=== PATIENT | female | born 1990 | race Caucasian/White ===

== ENCOUNTER 2017-04-07 12:56 | Emergency (ER) | payer OTHER ==
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
[2017-04-07 13:40] VITALS: TEMP 98.1
[2017-04-07 14:07] VITALS: BP 102/69; O2SAT 97
== END 2017-04-07 13:55 | disposition home or self-care (01) ==
LOC: ER 12:56
DX: O98.513 Other viral diseases complicating pregnancy, third trimester (principal); O24.419 Gestational diabetes mellitus in pregnancy, unspecified control; O99.513 Diseases of the respiratory system complicating pregnancy, third trimester; J45.909 Unspecified asthma, uncomplicated; O10.913 Unspecified pre-existing hypertension complicating pregnancy, third trimester; I10 Essential (primary) hypertension; O99.333 Smoking (tobacco) complicating pregnancy, third trimester; F17.210 Nicotine dependence, cigarettes, uncomplicated; Z87.440 Personal history of urinary (tract) infections; O99.343 Other mental disorders complicating pregnancy, third trimester; F32.9 Major depressive disorder, single episode, unspecified; Z3A.35 35 weeks gestation of pregnancy

== ENCOUNTER 2017-08-24 18:23 | Emergency (ER) | payer OTHER ==
[2017-08-24] MEDS ORDERED: SODIUM CHLORIDE 0.9% 1000ML 1,000 ML IVS ONE (18:39)
[2017-08-24] MEDS ORDERED: PROMETHAZINE HCL INJ 25 MG in SODIUM CHLORIDE 0.9% 50ML 50 ML IVPB ONE (18:39)
[2017-08-24] MEDS ORDERED: SUCRALFATE 1 GM/10 ML 1 GM UD PO ONE (18:39)
[2017-08-24 18:46] VITALS: TEMP 97.8
--- NOTE | 2017-08-24 19:02 | RAD ---
EXAM DESCRIPTION: Abdomen Series CLINICAL HISTORY: n/v COMPARISON: None FINDINGS: Supine and upright images of the abdomen and chest were submitted. The lungs are clear and cardiac silhouette normal. There is no free air in the abdomen. There is no evidence of bowel obstruction. IMPRESSION: No acute abnormalities. Electronically signed by: Ramin Kuo 08/24/2017 7:01 PM LAUNDRY PRICING CLERK
[2017-08-24] MEDS ORDERED: PROMETHAZINE HCL INJ 25 MG/ML VIAL ONE (19:18)
[2017-08-24] MEDS ORDERED: SODIUM CHLORIDE 0.9% 100ML 0 ML IVPB ONE (19:29)
[2017-08-24] MEDS ORDERED: SODIUM CHLORIDE 0.9% 50ML 50 ML ONE (19:30)
[2017-08-24] MEDS ORDERED: POTASSIUM CHLORIDE ELIXIR 20 MEQ/15 ML UD PO ONE (19:35)
[2017-08-24] MEDS ORDERED: KETOROLAC TROMETHAMINE INJ 30 MG/ML VIAL IV ONE (19:42)
[2017-08-24 19:59] VITALS: BP 109/73; O2SAT 98
[2017-08-24] MEDS ORDERED: ONDANSETRON ODT 8 MG TAB SL ONE (20:35)
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
== END 2017-08-24 20:53 | disposition home or self-care (01) ==
LOC: ER 18:23
DX: B34.9 Viral infection, unspecified (principal); Z87.891 Personal history of nicotine dependence; I10 Essential (primary) hypertension; R01.1 Cardiac murmur, unspecified
CPT/HCPCS: 36415; 74020; 80053; 81001; 81025; 82150; 83690; 83735; 85025; 87502; A4216; J1885; J2550; J7030

== ENCOUNTER 2017-09-02 06:53 | Emergency (ER) | payer OTHER ==
[2017-09-02 07:08] VITALS: BP 124/85; TEMP 98; O2SAT 97
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
== END 2017-09-02 07:45 | disposition home or self-care (01) ==
LOC: ER 06:53
DX: J02.9 Acute pharyngitis, unspecified (principal); F17.200 Nicotine dependence, unspecified, uncomplicated; R01.1 Cardiac murmur, unspecified

== ENCOUNTER → 2017-12-16 | Outpatient (CLI) | payer SELFPAY ==
--- NOTE | 2017-12-16 15:57 | RAD ---
EXAM DESCRIPTION: KUB CLINICAL HISTORY: DORSALGIA COMPARISON: None Available. TECHNIQUE: KUB FINDINGS: There is an unremarkable bowel gas pattern. Slight leftward curvature of the L-spine. Bones are otherwise unremarkable. Fecal burden is within normal limits. There is no mass or calculus observed. IMPRESSION: No diagnostic abnormality. Electronically signed by: Michael Garcia MD 12/16/2017 3:56 PM TRACK LAYING EQUIPMENT OPERATOR
== END ==
LOC: LAB.O 08:09
PROVIDERS: ATTEND Obstetrics & Gynecology
DX: M54.9 Dorsalgia, unspecified (principal)

== ENCOUNTER 2018-01-16 16:21 | Emergency (ER) | payer OTHER ==
[2018-01-16 17:04] VITALS: BP 118/70; TEMP 98.6; O2SAT 97
--- NOTE | 2018-01-16 17:13 | ED.PDOC ---
History of Present Illness - General Chief Complaint: General Stated Complaint: Fever, Aches, Upper Respitatory Congestion Time Seen by Provider: 01/16/18 17:11 Source: patient, RN notes reviewed, Vital Signs reviewed Additional Information: 27 YEAR OLD WHITE FEMALE HERE WITH COMPLAINTS OF COUGH CONGESTION REDDISH MUCOID SPUTUM FOR THE PAST 2 DAYS DENIES FEVER CHILLS SHE IS A SMOKER HAS NO HISTORY OF ALLERGIES OR ASTHMA - History of Present Illness Timing/Duration: getting worse Severity: moderate Improving Factors: nothing Worsening Factors: nothing Associated Symptoms: denies symptoms Allergies/Adverse Reactions: Allergies Aspartame [From Maalox] Allergy (Verified 01/16/18 16:51) Calcium Carbonate [From Maalox] Allergy (Verified 01/16/18 16:51) Unknown antibiotic Allergy (Uncoded 01/16/18 16:51) Home Medications: Ambulatory Orders Azithromycin [Zithromax Z-Mandeep] 1 ea PO DAILY #1 pack 01/16/18 Review of Systems - Review of Systems Constitutional: States: no symptoms reported EENTM: States: no symptoms reported Respiratory: States: see HPI Cardiology: States: no symptoms reported Gastrointestinal/Abdominal: States: no symptoms reported Genitourinary: States: no symptoms reported Musculoskeletal: States: no symptoms reported Skin: States: no symptoms reported Neurological: States: no symptoms reported Endocrine: States: no symptoms reported Hematologic/Lymphatic: States: no symptoms reported Past Medical History (General) - Patient Medical History Hx Seizures: No Hx Stroke: No Hx Asthma: Yes Hx of COPD: No Hx Cardiac Disorders: Yes - heart murmur Hx Congestive Heart Failure: No Hx Pacemaker: No Hx Hypertension: Yes Hx Diabetes: No Hx Gastroesophageal Reflux: Yes Hx Renal Disease: Yes - uti Hx Cancer: No Hx Hepatitis C: No Hx MRSA: No Surgical History: Hysterectomy - Vaccination History Hx Tetanus, Diphtheria Vaccination: Yes Hx Influenza Vaccination: No Hx Pneumococcal Vaccination: No - Social History Hx Tobacco Use: No Hx Chewing Tobacco Use: No Hx Alcohol Use: Yes - Rarely Hx Substance Use: No Hx Substance Use Treatment: No Hx Depression: No Feels Threatened In Home Enviroment: No Feels Threatened In a Relationship: No Hx Physical Abuse: No Hx Emotional Abuse: No Hx Suspected Abuse: No - Female History Patient is a Female of Child Bearing Age (10 -59 yrs old): No Hx Last Menstrual Period: 05/09/14 Patient : No Expected Date of Delivery:: 02/09/15 Family Medical History - Family History Father Age (years): 50 Living Status: Still Living Hx Family Asthma: Yes Hx Family Congestive Heart Failure: No Hx Family Hypertension: Yes - gf Hx Family Stroke: No Hx Cardiac Disease: No Hx Family Diabetes: Yes Hx Family Cancer: No Sister Living Status: Age at (years of age): 8da Hx Family;Other: sister at 8 days of age "all organs on 1 side of body crushing heart" Mother Family History: Unknown Age (years): 50 Living Status: Still Living Hx Family Asthma: Yes Age of Onset (years of age): lif Hx Family Congestive Heart Failure: Yes Hx Family Hypertension: Yes Hx Family Stroke: Yes Hx Cardiac Disease: Yes - daughter Hx Family Diabetes: Yes Age of Onset (years of age): 40 Hx Family Cancer: Yes - breast, prostate, uterine Hx Family;Other: alziemers, parkinsons, Physical Exam - Physical Exam General Appearance: Alert, Comfortable Eye Exam: bilateral normal Ears, Nose, Throat: hearing grossly normal, normal ENT inspection, pharyngeal erythema Neck: non-tender, full range of motion, supple Respiratory: chest non-tender, lungs clear, normal breath sounds, no respiratory distress Cardiovascular/Chest: normal peripheral pulses, regular rate, rhythm, no edema, no gallop, no JVD Gastrointestinal/Abdominal: normal bowel sounds, non tender, soft, no organomegaly Extremity: normal range of motion, non-tender, normal inspection Neurologic: behavioral instructor II-XII nml as tested, no motor/sensory deficits, alert, normal mood/affect, oriented x 3 Departure - Departure Clinical Impression: Bronchitis Time of Disposition: 17:14 Disposition: Discharge to Home or Self Care Condition: Good Departure Forms: ED Discharge - Pt. Copy, Patient Portal Self Enrollment Diet: resume usual diet Activity: as per physical therapy Referrals: Jose Alejandro Malloy MD [Primary Care Provider] - 1-2 Weeks Prescriptions: Azithromycin [Zithromax Z-Mandeep] 1 ea PO DAILY #1 pack Home Medications: Ambulatory Orders Azithromycin [Zithromax Z-Mandeep] 1 ea PO DAILY #1 pack 01/16/18
== END 2018-01-16 17:25 | disposition home or self-care (01) ==
LOC: ER 16:21
DX: J40 Bronchitis, not specified as acute or chronic (principal); R01.1 Cardiac murmur, unspecified; I10 Essential (primary) hypertension; K21.9 Gastro-esophageal reflux disease without esophagitis; F17.200 Nicotine dependence, unspecified, uncomplicated

== ENCOUNTER 2018-11-26 22:35 | Emergency (ER) | payer OTHER ==
--- NOTE | 2018-11-26 23:11 | ED.PDOC ---
History of Present Illness - General Chief Complaint: General Stated Complaint: Irritation to right underarm for one month Time Seen by Provider: 11/26/18 23:06 Source: patient Exam Limitations: no limitations - History of Present Illness Initial Comments: Fallon Macdonald 28 y/o female stated that she had knots on her right arm pit noted 3 days ago and also with burning pain on urination.Denies chronic medical problems Timing/Duration: 24 hours Severity: moderate Improving Factors: nothing Worsening Factors: nothing Associated Symptoms: denies symptoms Allergies/Adverse Reactions: Allergies Aspartame [From Maalox] Allergy (Verified 01/16/18 16:51) Calcium Carbonate [From Maalox] Allergy (Verified 01/16/18 16:51) Unknown antibiotic Allergy (Uncoded 01/16/18 16:51) Home Medications: Ambulatory Orders Sulfa/Trimeth 800/160 (Ds) Tab [Bactrim DS] 1 tablet PO BID 10 Days #20 tab 11/26/18 Review of Systems - Review of Systems Constitutional: States: no symptoms reported Respiratory: States: no symptoms reported Cardiology: States: no symptoms reported Gastrointestinal/Abdominal: States: no symptoms reported Genitourinary: States: see HPI All other Systems: Reviewed and Negative, No Change from Baseline Past Medical History (General) - Patient Medical History Hx Seizures: No Hx Stroke: No Hx Asthma: Yes Hx of COPD: No Hx Cardiac Disorders: Yes - heart murmur Hx Congestive Heart Failure: No Hx Pacemaker: No Hx Hypertension: Yes Hx Diabetes: No Hx Gastroesophageal Reflux: Yes Hx Renal Disease: Yes - uti Hx Cancer: No Hx Hepatitis C: No Hx MRSA: No Surgical History: other - hysterectomy partial -endometriosis - Vaccination History Hx Tetanus, Diphtheria Vaccination: Yes Hx Influenza Vaccination: No Hx Pneumococcal Vaccination: No - Social History Hx Tobacco Use: No Hx Chewing Tobacco Use: No Hx Alcohol Use: Yes - Rarely Hx Substance Use: No Hx Substance Use Treatment: No Hx Depression: No Hx Physical Abuse: No Hx Emotional Abuse: No Hx Suspected Abuse: No - Female History Hx Last Menstrual Period: 05/09/14 Patient : No Expected Date of Delivery:: 02/09/15 Family Medical History - Family History Father Age (years): 50 Living Status: Still Living Hx Family Asthma: Yes Hx Family Congestive Heart Failure: No Hx Family Hypertension: Yes - gf Hx Family Stroke: No Hx Cardiac Disease: No Hx Family Diabetes: Yes Hx Family Cancer: No Sister Living Status: Age at (years of age): 8da Hx Family;Other: sister at 8 days of age "all organs on 1 side of body crushing heart" Mother Family History: Unknown Age (years): 50 Living Status: Still Living Hx Family Asthma: Yes Age of Onset (years of age): lif Hx Family Congestive Heart Failure: Yes Hx Family Hypertension: Yes Hx Family Stroke: Yes Hx Cardiac Disease: Yes - daughter Hx Family Diabetes: Yes Age of Onset (years of age): 40 Hx Family Cancer: Yes - breast, prostate, uterine Hx Family;Other: alziemers, parkinsons, Physical Exam - Physical Exam General Appearance: Alert, Comfortable, No apparent distress Eye Exam: bilateral normal Ears, Nose, Throat: hearing grossly normal, normal ENT inspection Neck: non-tender, supple, normal inspection Respiratory: lungs clear, normal breath sounds Cardiovascular/Chest: normal peripheral pulses, regular rate, rhythm, no murmur Peripheral Pulses: radial,right: 2+, radial,left: 2+ Gastrointestinal/Abdominal: non tender, soft, no organomegaly Back Exam: no CVA tenderness, no vertebral tenderness Extremity: no pedal edema, no calf tenderness Neurologic: alert, oriented x 3 Skin Exam: normal color, warm/dry, other - papular eruption right armpit Progress - Progress Progress: 11/26/18 23:17 Vital Signs - 8 hr 11/26/18 22:56 Temperature 98.4 F Pulse Rate [ 99 H Monitor] Respiratory 18 Rate Blood Pressure 120/88 [Left Arm] O2 Sat by Pulse 100 Oximetry - Results/Orders Results/Orders: Laboratory Tests 11/26/18 22:40 Urine Color Yellow Urine Appearance Sl cloudy Urine pH 6.0 Ur Specific [place] 1.020 Urine Protein Negative Urine Glucose (UA) Negative Urine Ketones Negative Urine Blood Negative Urine Nitrite Positive H Urine Bilirubin Negative Urine Urobilinogen 0.2 Ur Leukocyte Esterase Negative Urine RBC 0-1 Urine WBC 10-20 H Ur Epithelial Cells 10-20 Urine Bacteria 4+ H Departure - Departure Clinical Impression: Folliculitis of axilla Urinary tract infection Qualifiers: Urinary tract infection type: site unspecified Hematuria presence: without hematuria Qualified Code(s): N39.0 - Urinary tract infection, site not specified Time of Disposition: 23:47 Disposition: Discharge to Home or Self Care Condition: Good Departure Forms: ED Discharge - Pt. Copy, Patient Portal Self Enrollment Instructions: Folliculitis (DC), Folliculitis, Urinary Tract Infection, Adult (DC), Urinary Tract Infections in Adults Referrals: Jose Alejandro Malloy MD [Primary Care Provider] - 1-2 Weeks Prescriptions: Sulfa/Trimeth 800/160 (Ds) Tab [Bactrim DS] 1 tablet PO BID 10 Days #20 tab Home Medications: Ambulatory Orders Sulfa/Trimeth 800/160 (Ds) Tab [Bactrim DS] 1 tablet PO BID 10 Days #20 tab 11/26/18 Additional Instructions: Follow up with primary Md 30 Nov 2018 as needed for recheck;return to ER as needed
[2018-11-26] MEDS ORDERED: SULFA/TRIMETH 800/160 (DS) TAB 1 EA TAB PO ONE (23:46)
[2018-11-27 00:04] VITALS: BP 130/70; TEMP 98.2; O2SAT 98
== END 2018-11-26 23:59 | disposition home or self-care (01) ==
LOC: ER 22:35
DX: N39.0 Urinary tract infection, site not specified (principal); L73.9 Follicular disorder, unspecified; K21.9 Gastro-esophageal reflux disease without esophagitis; I10 Essential (primary) hypertension; J45.909 Unspecified asthma, uncomplicated; R01.1 Cardiac murmur, unspecified; Z88.8 Allergy status to other drugs, medicaments and biological substances; Z88.1 Allergy status to other antibiotic agents

== ENCOUNTER → 2019-06-14 | Outpatient (CLI) | payer OTHER | LOC: LAB.O 12:28 | PROVIDERS: ATTEND Nurse Practitioner Psychiatric/Mental Health | DX: F33.1 Major depressive disorder, recurrent, moderate (principal) ==